=== PATIENT | male | born 1990 | race Caucasian/White ===

== ENCOUNTER 2023-04-02 06:08 | Day surgery (SDC) | payer BC, SELFPAY ==
[2023-04-02 06:18] VITALS: BP 133/89
[2023-04-02] MEDS: TYLENOL 1000 MG PO (06:32)
[2023-04-02] MEDS: NORMOSOL-R 1000 IV (06:32)
--- NOTE | 2023-04-02 07:12 | W.SUR.PREOP ---
Pre-Operative Surgical Note
-
I have examined this patient prior to the performance of the scheduled procedure.
The patient's condition is unchanged from the time of the current History and
Physical and the patient is able to undergo the scheduled procedure.
[2023-04-02 09:02] VITALS: BP 130/83
[2023-04-02 09:15] VITALS: BP 127/91
--- NOTE | 2023-04-02 09:17 | W.IMMPOSTOP ---
Surgical Immed Post Op Note
-
Primary Surgeon: TIM Santizo MD
Assisting Surgeon:
Pre-op Diagnosis: Recurrent Posterior scalp mass, scalp cyst
Post-op Diagnosis: Same
Procedure Performed: Excision of posterior scalp mass 5x6cm, complex closure 6cm, scalp cyst excison 1x1cm
Anesthesia Type: Sedation
Specimen / Cultures: Soft tissue mass, cyst
Estimated Blood Loss: 50cc
Complications: None
Operative Findings: As expected
[2023-04-02 09:20] VITALS: BP 127/91
--- NOTE | 2023-04-02 09:27 | OR.RPT ---
Operative Report
Operative Report
Surgeon: TIM Santizo MD
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
Postoperative diagnosis: Same
Procedure:
1. Excision of soft tissue mass, subfascial, 5 x 6 cm, scalp
2. Complex closure 6 cm, posterior scalp
3. Excision of benign lesion of scalp, 1.2 x 1.2 cm
Anesthesia: Sedation
Complications: None
Specimens:
1. Posterior scalp mass, soft tissue
2. Posterior scalp cyst
EBL: 50 cc
Indications for procedure: Patient is a 33-year-old male with a long history of a multiply recurrent posterior scalp mass. He underwent prior in office excision attempts with no improvement. Most recent attempt resulted in hematoma, seroma.
Significant scar burden was noted at the time of that procedure. After waiting appropriate amount of time, the outcome was assessed and it was determined that the mass had not been completely resected. This likely represents some residual mass
versus poor scar burden. He desired to proceed with repeat attempted excision. In this case due to the complexity, we will perform this in the operating room for greater control. Of note he had a scalp cyst approximately 3 cm adjacent to the
aforementioned scalp mass. He desired removal of this at the same time if possible. Risk the procedure include scar, recurrence, bleeding, seroma, alopecia. Contour abnormalities possible after removal of the mass. He understood these risks and
desired to proceed
Procedure detail: Patient was identified the preoperative area and the surgical site was confirmed as the posterior scalp. Consents were confirmed and all questions were answered. Patient was taken back to the operating room placed prone on the
table. Anesthesia was performed with sedation. Timeout for patient safety was performed was confirmed that preoperative antibiotics have been administered and bilateral SCDs were placed. Local anesthesia was obtained with 20 cc of 1% lidocaine
with epinephrine in a ring block fashion. The patient was then prepped and draped using Betadine solution. Procedure began with revision of the prior scar with a 15 blade. Skin flaps were developed bilaterally ensuring to protect the hair
follicles. A large 5 x 6 cm soft tissue mass consistent with scar and prior lipoma was identified. Dissection continued around this mass with Bovie electrocautery after the skin flaps were sharply developed. The paracranium was kept intact and
the skull was not exposed during the removal of the mass. It was removed en bloc and sent for pathology. The small cyst adjacent to the mass was able to be identified on the deep surface of the dermis. This was then sharply excised and also sent
for pathology. PETRA drain was placed and sutured with 2-0 Prolene. A complex closure of the wound measuring 6 cm was then performed with a series of quilting sutures consisting of 2-0 Vicryl sutures followed by 2-0 Vicryl's in the deep dermis and
2-0 nylon in the skin.
Patient tolerated the procedure well was performed without complication. All counts were correct at the end the case. Was taken to the PACU for further care.
[2023-04-02 09:30] VITALS: BP 135/85
[2023-04-02 09:45] VITALS: BP 134/89
== END 2023-04-02 09:47 | disposition home or self-care (01) ==
LOC: SDS 06:08
PROVIDERS: ATTENDING PHYSICIAN Surgery Plastic and Reconstructive Surgery
DX: D17.0 Benign lipomatous neoplasm of skin and subcutaneous tissue of head, face and neck (principal); L72.11 Pilar cyst; L72.8 Other follicular cysts of the skin and subcutaneous tissue
CPT/HCPCS: 11426; 21012; 88304; C1729